=== PATIENT | female | born 1960 | race Caucasian/White ===

== ENCOUNTER → 2022-07-28 | Outpatient (CLI) | payer OTHER, SELFPAY ==
[2022-07-30 16:09] LABS: Red Blood Cell Count Test/G6PD 4.85 x10E6/uL (3.77-5.28)
[2022-07-31 09:45] LABS: G6PD Quant Test 269 (127-427)
== END | disposition home or self-care (01) ==
LOC: LABSPEC 13:11
PROVIDERS: PCP Nurse Practitioner Family; Referring Provider Nurse Practitioner Family; Visit Provider Nurse Practitioner Family
DX: B60.00 Babesiosis, unspecified (principal)
CPT/HCPCS: 82955

== ENCOUNTER → 2022-10-26 | Outpatient (CLI) | payer OTHER, SELFPAY ==
--- NOTE | 2022-10-26 12:42 | CT_ITS ---
STUDY: CTA CHEST WITH CONTRAST REASON FOR EXAM: Female, 62 years old. CHEST PAIN, ABN ECHO RADIATION DOSAGE (If Supplied By Facility): CTDIvol = ( 33.62 ) mGy, DLP = ( 1168.18 ) mGycm TECHNIQUE: Transaxial imaging was performed following intravenous administration of IV 100mL Isovue-[id number]. Cardiac Overread examination. Individualized dose optimization techniques were used for this CT. COMPARISON: No relevant priors. FINDINGS: CHEST The lungs are normal. There is no demonstrated pleural abnormality. There are mild calcifications of the coronary arteries. There are small lymph nodes within the mediastinum, which are normal in size and morphology most compatible with reactive lymph hyperplasia. Calcified right hilar lymph nodes. Normal unenhanced pulmonary arteries. There is atherosclerotic calcification of the aortic arch. Normal osseous structures. Small hiatal hernia. Fatty infiltration of the liver. CT/Limited Chest CT Cardiac Only IMPRESSION: Mild degree of coronary artery calcification. Electronically Signed: Quentin Love MD at 10:29 EDT ,
[2022-10-26 12:58] VITALS: BP 125/86; PULSE 63; RESP 18; TEMP 37.1; O2SAT 95
[2022-10-26 13:05] VITALS: BMI 30.9
[2022-10-26] MEDS: 0.9% Saline Lock 10 ML Syringe IV (13:17)
[2022-10-26 13:18] VITALS: PULSE 63
[2022-10-26] MEDS: Nitroglycerin SL (ED/IMG/CATH) 0.4 MG TABLET SL (13:18)
[2022-10-26 13:24] VITALS: BP 95/59; PULSE 71; RESP 18; O2SAT 92
[2022-10-26 13:32] LABS: CREATININE FINGERSTICK < 0.9 mg/dL (0.55-1.02); EGFR FINGERSTICK > 60.0000 mL/min (>60)
--- NOTE | 2022-10-26 16:02 | CCTA.WCONT ---
CCTA w/Cont Coronary Arteries Date of Study:: 10/26/22 Chest pain LEFT MAIN CORONARY ARTERY: Arises from the left coronary cusp and bifurcates into left anterior descending artery and left circumflex artery. No significant atherosclerotic plaque is noted. LEFT ANTERIOR DESCENDING CORONARY ARTERY: This comes off the left main coronary artery. In the mid left anterior descending artery is an area of calcification with a mixture of hard and soft plaque. Mild stenosis is noted. LEFT CIRCUMFLEX CORONARY ARTERY: Nondominant vessel with mild diffuse atherosclerotic plaquing RIGHT CORONARY ARTERY: Dominant vessel with no high-grade plaquing noted and no calcification present. THORACIC AORTA: Mild calcification present. CORONARY CALCIUM SCORE: Not performed Conclusion: Mild to moderate atherosclerotic plaquing involving the mid left anterior descending artery.
== END | disposition home or self-care (01) ==
PROVIDERS: PCP Nurse Practitioner Family; Referring Provider Internal Medicine Cardiovascular Disease; Visit Provider Internal Medicine Cardiovascular Disease
DX: R07.9 Chest pain, unspecified (principal); D70.9 Neutropenia, unspecified; R93.1 Abnormal findings on diagnostic imaging of heart and coronary circulation
CPT/HCPCS: 75574; 76380; Q9967; A4216

== ENCOUNTER → 2023-11-01 16:08 | Outpatient (REF) | payer MEDICARE, OTHER, SELFPAY ==
[2023-11-01 17:23] LABS: Estradiol < 11.0 pg/mL
[2023-11-03 12:09] LABS: PROGESTERONE 0.1 ng/mL (.)
[2023-11-08 15:08] LABS: Estrogen, Total, Serum 39 pg/mL (40-244)
== END ==
LOC: LABSPEC 16:08
PROVIDERS: PCP Nurse Practitioner Family; Visit Provider Nurse Practitioner Family
DX: E28.9 Ovarian dysfunction, unspecified (principal); R53.82 Chronic fatigue, unspecified
CPT/HCPCS: 82627; 82670; 82672; 84144; 84403; 82626